=== PATIENT | female | born 1935 | race Two or more races ===

== ENCOUNTER 2023-10-08 07:58 | Emergency (ER) | payer OTHER ==
[~2023-10-08] VITALS: Ht 160 cm; Wt 62.6 kg
[2023-10-08] MEDS ORDERED: ATORVASTATIN CA10 MG (08:10)
== END 2023-10-08 10:40 | disposition home or self-care (01) ==
LOC: ER 07:59
DX: M17.12 Unilateral primary osteoarthritis, left knee (principal); M19.041 Primary osteoarthritis, right hand; E11.9 Type 2 diabetes mellitus without complications; I10 Essential (primary) hypertension; Z88.0 Allergy status to penicillin; Z91.013 Allergy to seafood
CPT/HCPCS: 96372; 99284; J1885

== ENCOUNTER 2024-01-20 09:23 | Emergency (ER) | payer OTHER ==
[~2024-01-20] VITALS: Ht 160 cm; Wt 62.6 kg
[~2024-01-20 09:23] MED LIST: ATORVASTATIN CA10 MG
[2024-01-20] MEDS ORDERED: ZESTRIL20 MG PO (09:40)
[2024-01-20] MEDS ORDERED: GLIMEPIRIDE2 MG PO (09:42)
[2024-01-20] MEDS ORDERED: FAMOTIDINE/PF 20 MG/2 ML VIAL IV PUSH STA (10:51)
== END 2024-01-20 12:53 | disposition home or self-care (01) ==
LOC: ER 09:23
DX: K29.70 Gastritis, unspecified, without bleeding (principal); Z88.0 Allergy status to penicillin; Z91.013 Allergy to seafood; R05.8 Other specified cough
CPT/HCPCS: 96365; 99282; J3490

== ENCOUNTER 2025-09-02 13:37 | Emergency (ER) | payer OTHER ==
[~2025-09-02] VITALS: Ht 152.4 cm; Wt 63.5 kg
[~2025-09-02 13:37] MED LIST changes: +GLIMEPIRIDE2 MG PO; +ZESTRIL20 MG PO
[2025-09-02] MEDS ORDERED: HORIZANT600 MG PO (14:12)
[2025-09-02] MEDS ORDERED: LEVALBUTEROL HCL 1.25 MG/3 ML SOLUTION IH SCH (16:00)
[2025-09-02] MEDS ORDERED: IPRATROPIUM BROMIDE 0.5 MG/2.5 ML AMPUL.NEB IH SCH (16:00)
[2025-09-02] MEDS ORDERED: BUDESONIDE 0.5 MG/2 ML AMPUL.NEB IH ONE ×2 (16:00→16:45)
[2025-09-02 16:46] LABS: BASO % 0.2 % (0.1-1.2); EOS # 0.06 (0.04-0.54); EOS % 0.5 % (0.7-7.0); LYMPH # 2.86 (1.18-3.74); LYMPH % 22.3 % (19.3-53.1); MEAN PLATELET VOLUME 10.40 fl (9.4-12.4); MONO # 1.16 (0.24-0.82); MONO % 9.0 % (4.7-12.5); NEUT # 8.53 (1.56-6.13); NEUT % 66.5 % (34.0-71.1); RED CELL DISTRIBUTION WIDTH 13.1 % (11.6-14.4)
[2025-09-02] MEDS ORDERED: GILTUSS DIABET118 ML PO (18:15)
[2025-09-02] MEDS ORDERED: ACETAMINOPHEN500 M1 PO (18:15)
[2025-09-02] MEDS ORDERED: ZITHROMAX TRI-500 MG PO (18:15)
[2025-09-02 18:17] LABS: COVID-19 AG NEGATIVE (NEGATIVE)
== END 2025-09-02 19:59 | disposition home or self-care (01) ==
LOC: ER 13:38
PROVIDERS: Preventive Medicine Public Health & General Preventive Medicine
DX: R05.8 Other specified cough (principal); Z88.0 Allergy status to penicillin; Z91.013 Allergy to seafood; I10 Essential (primary) hypertension; Z20.822 Contact with and (suspected) exposure to COVID-19; E11.9 Type 2 diabetes mellitus without complications; Z79.84 Long term (current) use of oral hypoglycemic drugs